=== PATIENT | female | born 1975 | race Caucasian/White ===

== ENCOUNTER 2017-01-16 09:06 | Day surgery (SDC) | payer MEDICARE, MEDICAID ==
[~2017-01-16 09:06] MED LIST: AMOXICILLIN500 MG; AMOXIL500 M PO; AUGMENTIN 875-11 TAB PO; BIAXIN500 M2 PO; BIRTH CONTROL PILLS; CARAFATE1 G/10 ML PO; CLEOCIN PA75 MG/5 M1 PO; CLINDAMYCI PO; CLINDAMYCIN; CLINDAMYCIN HC300 MG PO; COMPAZINE25 MG/SUPP PR; DESOGEN; DIFLUCAN150 MG PO; ELAVIL25 MG PO; ELMIRON; ELMIRON100 M1; ELMIRON100 MG PO; FLEXERIL10 MG PO; FLEXERIL5 MG PO; H PO; HYDROCODON-ACE1 EA16 PO; KEFLEX500 M4 PO; MACROBID 100 M100 MG; MOTRIN600 MG PO; MUCINEX D ER T1 EAC2 PO; MULTIVITAMINS1 EAC6 PO; NORCO 10-325 T1 EACH PO; NORCO 5-325 TA1 EACH PO; NORCO 5/325 TAB1 TAB PO; NUCYNTA50 MG PO; ORTHO TRI-7 DAYSX 3 PO; ORTHO TRI-CYCL1 EAC1 PO; PERCOCET 5/3251 TAB PO; PREDNISONE10 MG PO; PREDNISONE20 M1 PO; PREDNISONE20 MG PO; PROAIR HFA8.5 GM IH; PROBIOTIC1 EA10; PROVENTIL HFA6.7 G1 IH; SMZ-TMP DS 800-1 TAB PO; TERAZOL VG; TRAMADOL HCL50 MG PO; TYLENOL EXTRA500 M1 PO; ULTRAM50 M1 PO; YAZ 28 TABLET1 EACH PO; ZITHROMAX250MG Z-PAK PO; ZOFRAN ODT4 MG PO; ZOFRAN ODT4 MG/UDTAB PO; ZOFRAN ODT8 MG SL; ZOFRAN4 M2 PO; ZOFRAN8 M1 PO; [UNRECOGNIZED DRUG - OTHER]
[2017-01-16] MEDS ORDERED: MOBIC7.5 M2 PO (09:49)
[2017-01-16 10:09] LABS: URINE BILIRUBIN NEGATIVE (NEG); URINE BLOOD LARGE (NEG); URINE GLUCOSE (UA) NEGATIVE (NEG); URINE KETONE NEGATIVE (NEG); URINE LEUKOCYTE ESTERASE POSITIVE (NEG); URINE NITRITE NEGATIVE (NEG); URINE PROTEIN MODERATE (NEG); URINE SPECIFIC GRAVITY 1.015 (1.003-1.030)
[2017-01-16 10:11] LABS: URINE APPEARANCE CLOUDY; URINE COLOR YELLOW
[2017-01-16 10:18] LABS: URINE EPITHELIAL CELLS 25-30 /[HPF] (0-10); URINE RBC 130-150 /[HPF] (0-5)
[2017-01-16 10:19] LABS: URINE BACTERIA 3+; URINE MUCUS 1+; URINE WBC 25-30 /[HPF] (0-5)
[2017-01-16 10:24] LABS: BASO % 0.6 % (0-2); EOSINOPHIL ABSOLUTE COUNT 0.2 tho/cmm (0.0-0.7); HCT-HEMATOCRIT 39.3 % (34.0-49.0); HGB-HEMOGLOBIN 13.3 gm/dl (12.0-15.5); IMMATURE GRANULOCYTES ABSOLUTE 0.01 tho/cmm (0-0.03); IMMATURE GRANULOCYTES PERCENT 0.2 % (0-0.3); LYMPH % 37.8 % (20-45); LYMPH ABSOLUTE COUNT 1.9 tho/cmm (0.8-4.5); MCH (MEAN CORPUSCULAR HGB) 30.6 pg (28.0-32.0); MCHC MEAN CORPUSCULAR HGB CONC 33.8 % (32.0-36.0); MCV (MEAN CELL VOLUME) 90.3 fl (82.0-96.0); MEAN PLATELET VOLUME 10.3 cmc (9.4-12.4); MONO % 8.9 % (0-12); MONOCYTE ABSOLUTE COUNT 0.4 tho/cmm (0.0-1.2); NEUTROPHIL ABSOLUTE COUNT 2.4 tho/cmm (1.6-8.0); NEUTROPHIL-AUTOMATED 2.4 tho/cmm (1.6-8.0); NEUTROPHILS % 48.5 % (40-80); PLATELET COUNT 194 tho/cmm (150-450); RED BLOOD COUNT 4.35 mil/cmm (4.00-5.20); RED CELL DISTRIBUTION WIDTH 12.4 % (12.4-16.4)
[2017-01-16 10:37] LABS: ANION GAP 11 mmol/L (0-20); BLOOD UREA NITROGEN 11 mg/dl (6-24); CALCIUM 8.4 mg/dl (8.5-10.5); CARBON DIOXIDE-VENOUS 29 mmol/L (22-32); CHLORIDE 108 mmol/l (96-110); CREATININE 0.97 mg/dl (0.50-1.10); GLUCOSE 93 mg/dL (70-110); POTASSIUM 4.7 mmol/L (3.7-5.1); SODIUM 143 mmol/L (135-145); eGFR VALUE FOR BLACK 85 mL/Min
[2017-01-16 11:04] LABS: PROTHROMBIN TIME 11.1 SECONDS (9.0-13.6)
== END 2017-01-16 18:15 ==
LOC: SRG 09:06 → SHSB 09:07 → ORE 11:50 → PACU 12:47 → SHSB 14:00
PROVIDERS: Urology
PROC: 0TF3XZZ Fragmentation in Right Kidney Pelvis, External Approach (ICD-10-PCS; principal; 2017-01-16)
DX: N20.0 Calculus of kidney (principal); F41.9 Anxiety disorder, unspecified; Z79.1 Long term (current) use of non-steroidal anti-inflammatories (NSAID); Z79.3 Long term (current) use of hormonal contraceptives; Z79.899 Other long term (current) drug therapy; Z88.1 Allergy status to other antibiotic agents; Z88.5 Allergy status to narcotic agent; Z90.89 Acquired absence of other organs; Z98.890 Other specified postprocedural states
CPT/HCPCS: J1170; J1956; J2175; J2250; J2405; J2550; J2765; J3010